=== PATIENT | female | born 1985 | race Caucasian/White ===

== ENCOUNTER 2016-08-22 06:00 | Inpatient (IN) | payer OTHER ==
[2016-08-22] MEDS ORDERED: METHYLERGONOVINE 0.2 MG/ML 1 ML AMP IM PRN (06:17)
[2016-08-22] MEDS ORDERED: LIDOCAINE 1% (PF) 10 MG/ML (30 ML SDV) SQ PRN (06:17)
[2016-08-22] MEDS ORDERED: OXYTOCIN 30 UNITS/500 ML NS 30 UNIT in SALINE 1 500ML.BAG IV SCH ×2 (06:17→16:21)
[2016-08-22] MEDS ORDERED: OXYTOCIN 10 UNIT/ML 1 ML VIAL IM PRN (06:17)
[2016-08-22] MEDS ORDERED: CARBOPROST TROMETHAMINE 250 MCG/ML 1 ML AMP IM PRN (06:17)
[2016-08-22] MEDS ORDERED: TERBUTALINE 1 MG/ML VIAL SQ PRN (06:17)
[2016-08-22 06:27] VITALS: BMI 31.2
[2016-08-22 06:38] LABS: Basophils % (A) 0 %; CH 28.8; CHCM 33.5; Eosinophils # (A) 0.2 k/uL (0-0.7); Eosinophils % (A) 1 %; HDW 3.11; HGB 11.3 gm/dL (11.4-16.0); Luc # (Auto) 0.21; Luc % (Auto) 2; Lymphocytes # (A) 2.5 k/uL (1.0-4.8); Lymphocytes % (A) 23 %; MCH 28.8 pg (25.0-35.0); MCHC 33.3 g/dL (31.0-37.0); MCV 86.5 fL (80.0-100.0); Mean Platelet Volume 7.1; Monocytes # (A) 0.6 k/uL (0-1.0); Monocytes % (A) 5 %; Neutrophils # (A) 7.6 k/uL (1.3-7.7); Neutrophils % (A) 69 %; RBC 3.93 m/uL (3.80-5.40); RDW 13.3 % (11.5-15.5); WBC (Perox) 11.52
[2016-08-22] MEDS: LACTATED RINGERS 1,000 ML IV SCH ×3 (07:12→13:41)
--- NOTE | 2016-08-22 07:31 | P.HPOB ---
History of Present Illness H&P Date: 08/22/16 Chief Complaint: Patient is presenting for requested induction of labor. This patient is a pleasant 31-year-old 2 para 1 female estimated date of confinement 08/27/2016 estimated gestational age 39-2/7 weeks who presents to labor and delivery for requested induction of labor. Patient's care has been uncomplicated. She does have a history of oligohydramnios with her first however ultrasounds have shown normal amniotic fluid this . Patient now presents for requested delivery. Review of Systems Constitutional: Denies chills, Denies fever Ears, nose, mouth and throat: Denies headache, Denies sore throat Cardiovascular: Denies chest pain, Denies shortness of breath Respiratory: Denies cough Gastrointestinal: Reports heartburn Genitourinary: Reports Menstruation: Reports amenorrhea Musculoskeletal: Reports as per HPI Integumentary: Denies pruritus, Denies rash Neurological: Denies numbness, Denies weakness Past Medical History Past Medical History: No Reported History History of Any Multi-Drug Resistant Organisms: None Reported Additional Past Surgical History / Comment(s): left ankle Past Anesthesia/Blood Transfusion Reactions: No Reported Reaction Past Psychological History: No Psychological Hx Reported Smoking Status: Never smoker Past Alcohol Use History: None Reported Past Drug Use History: None Reported - Past Family History Mother Additional Family Medical History / Comment(s): cervical cancer Medications and Allergies Allergies Allergy/AdvReac Type Severity Reaction Status Date / Time No Known Allergies Allergy Verified 08/22/16 06:16 Exam - Vital Signs Vital signs: Vital Signs Temp Pulse Resp BP Pulse Ox 08/22/16 06:23 97.2 F L 96 16 127/71 98 Intake and Output 08/21/16 08/22/16 08/22/16 22:59 06:59 14:59 Other: Weight 85.275 kg - OBG Physical Exam Abdomen: bowel sounds normal, no diffuse tenderness, no bruit present, no guarding noted, no hepatomegaly, no splenomegaly, no mass Vagina: normal moisture, no discharge Cervix: Cervix is 2-3 cm dilated 50% effaced. Cervix: no lesion, no discharge Uterus: Fundal height is consistent with a term . Results blood work shows she is a positive, rubella nonimmune, hepatitis B negative, RPR nonreactive,: Was abnormal with a normal three-hour gtt., Group B strep was negative, ultrasounds have been normal. Result Diagrams: 08/22/16 06:27 Abnormal Lab Results - Last 24 Hours (Table) 08/22/16 Range/Units 06:27 WBC 11.0 H (3.8-10.6) k/uL Hgb 11.3 L (11.4-16.0) gm/dL Assessment and Plan (1) Elective induction of labor planned Narrative/Plan: This is a pleasant 31-year-old 2 para 1 female 39-2/7 weeks gestation who presents for requested induction of labor. Plan is induction of labor and anticipate vaginal delivery. Status: Acute
[2016-08-22] MEDS ORDERED: BUTORPHANOL 1 MG/ML 1 ML VIAL IV PRN (08:20)
[2016-08-22] MEDS ORDERED: BUPIVACAINE (PF) 0.25% 30 ML VIAL ONE (10:35)
[2016-08-22] MEDS ORDERED: fentaNYL (PF) 50 MCG/ML 5 ML AMP ONE (10:35)
[2016-08-22] MEDS ORDERED: SODIUM CHLORIDE 0.9% 100 ML BAG ONE (10:35)
[2016-08-22] MEDS ORDERED: BUPIVACAINE (PF) 0.25% 25 ML, fentaNYL (PF) 200 MCG in SODIUM CHLORIDE 0.9% 71 ML EPIDURAL ONE (12:17)
[2016-08-22] MEDS ORDERED: SIMETHICONE 80 MG CHEWABLE PO PRN (16:21)
[2016-08-22] MEDS ORDERED: diphenhydrAMINE 50 MG/ML 1 ML VIAL IVP PRN (16:21)
[2016-08-22] MEDS ORDERED: MEASLES-MUMPS-RUBELLA VACC/PF 12,500 UNIT/0.5 ML VIAL SQ ONE (16:21)
[2016-08-22] MEDS ORDERED: LANOLIN CREAM 5 GM TUBE TOPICAL PRN (16:21)
[2016-08-22] MEDS ORDERED: Acetaminophen-Codeine 300-30mg TAB PO PRN ×2 (16:21)
[2016-08-22] MEDS ORDERED: WITCH HAZEL 1 EACH MED..PAD TOPICAL PRN (16:21)
[2016-08-22] MEDS ORDERED: diphenhydrAMINE 25 MG CAP PO PRN (16:21)
[2016-08-22] MEDS ORDERED: BISACODYL 10 MG SUPP RECTAL PRN (16:21)
[2016-08-22] MEDS ORDERED: ZOLPIDEM 5 MG TAB PO PRN (16:21)
[2016-08-22] MEDS ORDERED: ACETAMINOPHEN TAB 325 MG TAB PO PRN (16:21)
[2016-08-22] MEDS ORDERED: HYDROCORTISONE 2.5% RECTAL CREAM 30 GM TUBE RECTAL PRN (16:21)
[2016-08-22] MEDS ORDERED: BENZOCAINE/MENTHOL SPRAY 1 GM/SPRAY AEROSOL TOPICAL PRN (16:21)
[2016-08-22] MEDS: IBUPROFEN 600 MG TAB PO PRN ×2 (16:32→21:54)
--- NOTE | 2016-08-22 16:42 | P.PROBDLV ---
Vaginal Delivery Note - . Vaginal Delivery Note: Normal vaginal delivery viable male infant Apgars 9 and 9 delivery time is 1542 hrs. Please see dictated H&P for intimate details of this patient's admission. Brief summary is a pleasant 31-year-old 2 para 1 female estimated gestational age 39-2/7 weeks who presents to labor and delivery for requested induction of labor. Patient is admitted she is approximately 3 cm dilated has artificial rupture membranes for clear fluid. Patient's labor is induced with Pitocin per protocol. She does progress and gets an epidural for pain control. Patient then gets to complete and pushes the head to the perineum. Posterior perineum was infiltrated with 1% lidocaine and a midline episiotomy is made. Then have controlled delivery of the 's head over the perineum. Mouth and nares are bulb suctioned. There is no evidence of nuchal cord. With gentle downward traction we then have deliver the anterior and posterior shoulder and rest this infant's body. Vigorous viable male Apgars are 9 and 9 and delivery time was 1542 hrs. After delivery of the infant the umbilical cord is doubly clamped and cut appears to be trivascular. Placenta is then spontaneously delivered intact. Second-degree laceration is repaired with 3-0 Vicryl usual fashion. Good reapproximation is noted. Estimated blood loss is about 1 50 mL. All counts are correct 3. There are no complications. Infant and mother are stable in delivery room.
[2016-08-22] MEDS: SENNOSIDES-DOCUSATE SODIUM 1 EACH TAB PO SCH ×2 (19:01→21:27)
[2016-08-23] MEDS: IBUPROFEN 600 MG TAB PO PRN ×2 (04:17→10:58)
--- NOTE | 2016-08-23 05:53 | P.PNOBGVD ---
Subjective - Subjective Patient reports: Reports appetite normal, Reports voiding normally, Reports pain well controlled, Reports ambulating normally : doing well Objective - Latest Vital Signs Latest vital signs: Vital Signs Temp Pulse Resp BP Pulse Ox 08/23/16 00:00 98.1 F 83 15 113/73 08/22/16 20:00 98.1 F 98 15 122/66 08/22/16 17:56 97.1 F L 96 16 113/59 08/22/16 17:26 108 H 16 113/56 08/22/16 16:56 102 H 16 102/68 08/22/16 16:41 86 16 106/63 08/22/16 16:26 100 16 120/64 08/22/16 16:11 104 H 16 118/63 08/22/16 15:56 98 16 113/71 08/22/16 06:23 97.2 F L 96 16 127/71 98 Intake and Output 08/22/16 08/22/16 08/23/16 14:59 22:59 06:59 Intake Total 2000 8.75 Output Total 100 200 Balance 1900 -191.25 Intake: IV 2000 Lactated Ringers 1,000 ml 2000 @ 125 mls/hr IV .Q8H DARNELL Rx#:[id number] Intake, IV Titration 8.75 Amount Oxytocin 30 Units/500 ml 8.75 Ns 30 unit In Saline 1 500ml.bag @ 1 MILLIUNIT/ MIN 1 mls/hr IV .Q24H DARNELL Rx#:[id number] Output: Urine 100 50 Estimated Blood Loss 150 Other: # Voids 1 1 - Exam Lungs: bilateral: normal Chest: Normal S1, Normal S2 Extremities: Present: normal Abdomen: Present: normal appearance, soft Uterus: Present: normal, firm - Labs Labs: Abnormal Lab Results - Last 24 Hours (Table) 08/22/16 Range/Units 06:27 WBC 11.0 H (3.8-10.6) k/uL Hgb 11.3 L (11.4-16.0) gm/dL Assessment and Plan (1) Elective induction of labor planned Narrative/Plan: day #1. Patient is resting without complaints. Patient wishes to go home. Vital signs are stable she is afebrile. Uterus is firm nontender she' s having normal lochia. My impression is a normal course. Plan is to continue routine care discharge home later today Current Visit: Yes Status: Acute Code(s): [id number] - SNOMED Code(s): 831823000
--- NOTE | 2016-08-23 05:55 | P.DS ---
Providers Date of admission: 08/22/16 06:02 Expected date of discharge: 08/23/16 Attending physician: Howard Moody Primary care physician: Elise Rivera - Discharge Diagnosis(es) (1) Elective induction of labor planned Current Visit: Yes Status: Acute Hospital Course: Please see dictated H&P for intimate details of this patient's admission. Brief summary this is a pleasant 31-year-old 2 para 1 female 39-2/7 gestation who presented to labor and delivery for requested induction of labor. Patient is admitted has uncomplicated induction of labor quickly goes on to have a vaginal delivery viable male infant. Please see dictated delivery note. day 1 patient's felt to be stable for discharge home follow up with me in 6 weeks. Procedures: Induction of labor and normal vaginal delivery Patient Condition at Discharge: Good Plan - Discharge Summary New Discharge Prescriptions: Acetaminophen-Codeine 300-30mg [Tylenol w/codeine #3] 1 - 2 each PO Q4HR PRN # 30 tab PRN Reason: Mild Pain exceeding Tylenol Ibuprofen [Motrin] 600 mg PO Q6HR PRN #40 tab PRN Reason: Mild Pain Or Fever >= 100.5 Discharge Medication List Acetaminophen-Codeine 300-30mg [Tylenol w/codeine #3] 1 - 2 each PO Q4HR PRN # 30 tab 08/23/16 [Rx] Ibuprofen [Motrin] 600 mg PO Q6HR PRN #40 tab 08/23/16 [Rx] Follow up Appointment(s)/Referral(s): Howard Moody MD [STAFF PHYSICIAN] - 10/11/16 9:30 am Patient Instructions/Handouts: Vaginal Delivery (DC) Activity/Diet/Wound Care/Special Instructions: No intercourse or anything per vagina for 6 weeks. Please call if any fever, chills, excessive vaginal bleeding, and/or abdominal pain. Discharge Disposition: HOME SELF-CARE
[2016-08-23] MEDS: SENNOSIDES-DOCUSATE SODIUM 1 EACH TAB PO SCH (07:49)
[2016-08-23 08:41] VITALS: RESP 16
[2016-08-23 16:06] VITALS: BP 100/65; PULSE 80; TEMP 97.8
== END 2016-08-23 16:58 | disposition home or self-care (01) | DRG 775 ==
LOC: 4FBP 06:02
PROVIDERS: ADMIT Obstetrics & Gynecology; ATTEND Obstetrics & Gynecology
PROC: 10E0XZZ Delivery of Products of Conception, External Approach (ICD-10-PCS; principal; 2016-08-22)
PROC: 0KQM0ZZ Repair Perineum Muscle, Open Approach (ICD-10-PCS; 2016-08-22)
PROC: 3E033VJ Introduction of Other Hormone into Peripheral Vein, Percutaneous Approach (ICD-10-PCS; 2016-08-22)
PROC: 10E0XZZ Delivery of Products of Conception, External Approach (ICD-10-PCS; 2016-08-22)
PROC: 10907ZC Drainage of Amniotic Fluid, Therapeutic from Products of Conception, Via Natural or Artificial Opening (ICD-10-PCS; 2016-08-22)
PROC: 0W8NXZZ Division of Female Perineum, External Approach (ICD-10-PCS; 2016-08-22)
PROC: 00HU33Z Insertion of Infusion Device into Spinal Canal, Percutaneous Approach (ICD-10-PCS; 2016-08-22)
DX: O70.1 Second degree perineal laceration during delivery (principal); Z37.0 Single live birth; Z3A.39 39 weeks gestation of pregnancy
CPT/HCPCS: 85025; 88307; 90471; 90707